=== PATIENT | female | born 1990 | race Two or more races ===

== ENCOUNTER 2022-11-19 04:05 | Emergency (ER) | payer OTHER ==
[2022-11-19 04:10] VITALS: BMI 29.8
[2022-11-19] MEDS ORDERED: ACETAMINOPHEN 500 MG TABLET (FP) PO ONE (04:18)
[2022-11-19] MEDS ORDERED: ACETAMINOPHEN 500 MG TABLET (FP) ONE (04:24)
[2022-11-19 05:21] LABS: BASO % 0.3 % (0-2.0); EOS % 0.1 % (0-4.5); HEMATOCRIT 31.8 % (32.4-45.2); HEMOGLOBIN 11.1 GM/dL (10.7-15.3); LYMPH % 7.3 % (8-40); MCHC 35.1 g/dl (32.0-36.0); MEAN CELL VOLUME 88.4 fl (80-96); MEAN PLT VOLUME 9.2 fl (7.5-11.1); MONO % 5.3 % (3.8-10.2); PLATELET COUNT 264 10^3/uL (134-434); RBC 3.59 M/mm3 (3.60-5.2); RDW 12.4 % (11.6-15.6); WHITE BLOOD COUNT 13.5 K/mm3 (4.0-10.0)
[2022-11-19 05:42] LABS: CALCIUM 8.9 mg/dL (8.5-10.1)
[2022-11-19 05:43] LABS: ALBUMIN 3.3 g/dl (3.4-5.0); BLOOD UREA NITROGEN 9.6 mg/dL (7-18)
[2022-11-19 05:46] LABS: CREATININE 0.6 mg/dL (0.55-1.3)
[2022-11-19 05:48] LABS: BILIRUBIN,TOTAL 0.2 mg/dL (0.2-1); TOT PROT 7.1 g/dl (6.4-8.2)
[2022-11-19 09:20] VITALS: BP 127/81; PULSE 94; RESP 19; TEMP 98.9
== END 2022-11-19 09:24 ==
LOC: JER 04:05
DX: O9A.212 Injury, poisoning and certain other consequences of external causes complicating pregnancy, second trimester (principal); M25.511 Pain in right shoulder; O99.412 Diseases of the circulatory system complicating pregnancy, second trimester; R00.0 Tachycardia, unspecified; W52.XXXA Crushed, pushed or stepped on by crowd or human stampede, initial encounter; Z3A.18 18 weeks gestation of pregnancy
CPT/HCPCS: 36415; 73030-TC-RT-FY; 76815-TC; 80053; 84702; 85025; 86850; 86900; 86901; 99285-25